=== PATIENT | male | born 1995 | race Caucasian/White ===

== ENCOUNTER 2024-12-23 18:46 | Emergency (ER) | payer BC, SELFPAY ==
[2024-12-23 18:53] VITALS: BP 145/75
[2024-12-23 21:41] VITALS: BMI 30.2
--- NOTE | 2024-12-23 21:45 | ED.GENMED ---
History of Present Illness
General
Chief Complaint: Anxiety
Source: patient
Exam Limitations: none
Time Seen by Provider: 12/23/24 21:43
History of Present Illness
History of Present Illness:
29yoM with a history of CHAVA on CPAP presenting with his mother for evaluation after an episode of palpitations. Symptoms occurred around 3:30 PM this afternoon. Patient was getting into his car when he started to feel like he was having a panic
attack. Patient states it felt like his heart was racing. His AppleWatch indicated possible afib. Symptoms lasted approximately 5 minutes before resolving. His girlfriend is a nurse who advised him to go to the ED for evaluation. Patient denies
any chest pain, shortness of breath, syncope. Of note, patient was seen by cardiology in 2021 for palpitations. He underwent an echocardiogram and Holter monitor at that time which were normal.
Past History
Past History
ED Past Medical History: None
Social History
Tobacco: Non-smoker
Phy Exam
General Physical Exam
General Presentation: well appearing and no apparent distress
General Skin: warm and dry
General Habitus: normal
General Mental: alert
ENT Exam
ENT Exam: normocephalic
Cardiovascular Exam
Cardiovascular Exam: regular rate/rhythm, no edema and no murmur
Pulmonary Exam
Pulmonary Exam: lungs clear, no respiratory distress, no rales, no crackles, no rhonchi and no wheezing
Neurological Exam
Neurological Exam: alert
Joey Coma Scale
Eye Opening: Spontaneous
Verbal Response: Oriented
Motor Response: Obeys Commands
GCS Total Score: 15
Skin Exam
Skin Exam: normal color and warm/dry
Psychiatric Exam
Psychiatric Exam: normal mood/affect
Course
Orders/Labs/Results
Orders:
Orders
12/23/24 18:51
Electrocardiogram (*1) Urgent
Reason for Study: Tachycardia
EKG- Treatment ONCE
12/23/24 22:00
Cardiac Monitoring- Treatment ONCE
12/23/24 22:12
Complete Blood Count/With Diff Urgent
Comprehensive Metabolic Panel Urgent
Free T4 Urgent
Magnesium Urgent
TSH Reflex To Free T4 Urgent
Troponin I Urgent
Abnormal Lab Results
12/23/24
22:12
RBC 4.63 L 10^6/uL
(4.70-6.10)
Glucose 105 H mg/dl
(70-99)
Total Protein 8.4 H g/dl
(6.3-8.2)
Albumin 5.1 H g/dl
(3.5-5.0)
TSH (Reflex) 0.04 L uIU/ml
(0.47-4.68)
12/23/24 22:12
12/23/24 22:12
Vital Signs
Initial and Last Documented VS:
Initial Vital Signs
Temp Pulse Resp BP Pulse Ox
98.5 F 73 16 145/75 100
12/23/24 18:53 12/23/24 18:53 12/23/24 18:53 12/23/24 18:53 12/23/24 18:53
Last Documented Vital Signs
Temp Pulse Resp BP Pulse Ox
98.5 F 71 17 107/69 99
12/23/24 18:53 12/23/24 23:45 12/23/24 23:45 12/23/24 23:00 12/23/24 23:45
MDM/Problems Addressed
Differential Diagnosis Includes:
29yoM here after an episode of palpitations/panic attack this afternoon. Apple Watch indicated atrial fibrillation although I was able to review this on patient's phone and rhythm strip is obscured by artifact. No objective evidence of afib noted.
Patient NSR during initial exam and is now asymptomatic. VSS. He is well-appearing in no acute distress. Exam reassuring. Differential diagnosis includes but is not limited to: Arrhythmia, thyroid dysfunction, electrolyte abnormality, anxiety,
doubt ACS
Initial ED plan: Triage EKG shows normal sinus rhythm without ischemic changes or ectopy. Will check cardiac labs, magnesium, and TSH. Patient placed on air sampling and monitoring.
*Pulse Oximetry
SaO2: 100
Oxygen Mode of Delivery: Room air
Patient hypoxic: no (100%)
*EKG
Interpreted by ED Provider?: Yes
EKG Intrepretation Date: 12/23/24
Heart Rate: 73
Rate: normal
Rhythm: sinus
[place]: normal axis
Interval: normal interval
QRS Pattern: normal QRS
Ischemia: no ischemia
*Critical Care Note
Total Time (30-74mins, 75-104mins- exclusive of procedures): Not Applicable
Update Note
Update Note:
TSH is low at 0.04 although free T4 is normal. Electrolytes and troponin normal. Patient remains asymptomatic on reassessment and no telemetry events noted throughout ED stay. Patient is stable for discharge. He was advised to follow-up with his
PCP as well as cardiology. ED return precautions reviewed. Patient in agreement with plan and was discharged in stable condition.
ED Attending Note
-
Portions of this chart may have been created with voice recognition software.� Occasional wrong word or��sound alike� substitutions may have occurred due to the inherent limitations of voice recognition software.
Discharge Plan
Departure
Patient Disposition: Home (Routine Discharge)
Date of Disposition: 12/23/24
Time of Disposition: 23:49
Patient with high blood pressure during this ER visit?: Yes
Discharge Problem:
Palpitations, Low TSH level
Instructions: Heart Palpitations
Prescriptions:
No Action
naproxen 500 MG tablet
500 mg PO BID Qty: 20 0RF
cyclobenzaprine 10 MG tablet
10 mg PO TIDPRN PRN (Reason: Pain, MS) Qty: 12 0RF
Referrals:
Fernanda Munoz CRNP [Family Provider, General]
oNry Hansen MD [Active, Cardiology]
Activity Restrictions/Additional Instructions:
Please call on Thursday to schedule follow-up appointments with your family doctor and a supervisor esters and emulsifiers. Return to the ER with any new or worsening symptoms.
Interventions
Interventions:
*Risk Screen - Suicide Last Done: 12/23/24 18:53
*General Assessment Last Done: 12/23/24 18:53
*Neglect/Abuse Screening Last Done: 12/23/24 18:53
*ED- Fall Risk Assessment Last Done: 12/23/24 23:59
*ED COVID-19 Vaccine History Last Done: 12/23/24 23:59
*Nursing Disposition Last Done: 12/23/24 23:59
ED-Psychological Assessment Last Done: 12/23/24 21:42
Discharge Date and Time
Discharge Date/Time: 12/24/24 00:00
Print Language: MACEDONIAN
[2024-12-23 22:00] VITALS: BP 144/81
[2024-12-23 22:21] LABS: Hematocrit 40.4 % (39.0-52.0); Hemoglobin 14.2 g/dL (13.0-18.0); Mean Corp Hgb Conc. 35.1 g/dL (33.0-37.0); Mean Corpuscular Volume 87.3 fL (80.0-94.0); Nucleated Red Blood Cells % 0 % (-); Platelet Count 253 10^3/uL (130-400); Red Cell Dist. Width 11.9 % (11.5-14.5)
[2024-12-23 22:39] LABS: ALT (SGPT) 25 U/L (0-50); AST (SGOT) 26 U/L (17-59); Albumin 5.1 g/dl (3.5-5.0); Alkaline Phosphatase 60 U/L (38-126); Blood Urea Nitrogen 19 mg/dl (9-20); Calcium 10.2 mg/dl (8.4-10.2); Carbon Dioxide 28 mmol/L (22-30); Chloride 105 mmol/L (98-107); Estimated Creatinine Clearance 98 ml/min; Glucose 105 mg/dl (70-99); Magnesium 2.1 mg/dl (1.6-2.3); Potassium 4.1 mmol/L (3.5-5.1); Sodium 140 mmol/L (135-145); Total Protein 8.4 g/dl (6.3-8.2); eGFR > 60.00
[2024-12-23 22:52] LABS: Troponin I < 0.012 ng/ml
[2024-12-23 23:00] VITALS: BP 107/69
== END 2024-12-24 | disposition home or self-care (01) ==
LOC: EMR 18:46
PROVIDERS: Physician Assistant; EMERGENCY PHYSICIAN Emergency Medicine; FAMILY PHYSICIAN Nurse Practitioner Adult Health
DX: R00.2 Palpitations (principal); R79.9 Abnormal finding of blood chemistry, unspecified; G47.33 Obstructive sleep apnea (adult) (pediatric)
CPT/HCPCS: 99284; 80053; 83735; 84439; 84443; 84484; 85025; 93005

== ENCOUNTER → 2025-02-27 07:26 | Outpatient (REF) | payer BC, SELFPAY | LOC: HWRCS 07:26 | PROVIDERS: ATTENDING PHYSICIAN Internal Medicine Cardiovascular Disease; FAMILY PHYSICIAN Nurse Practitioner Family | DX: R00.2 Palpitations (principal) | CPT/HCPCS: 93306 ==